=== PATIENT | male | born 1980 | race Caucasian/White ===

== ENCOUNTER 2021-11-30 12:52 | Emergency (ER) | payer OTHER ==
[~2021-11-30 12:52] MED LIST: IBUPROFEN600 MG PO; MOBIC15 MG PO; NAPROXEN250 MG PO
[2021-12-04 06:12] LABS: CHLAMYDIA TRACHOMATIS, NAA Negative (Negative); NEISSERIA GONORRHOEAE, NAA Negative (Negative)
== END 2021-11-30 16:25 | disposition home or self-care (01) ==
LOC: ER1 12:52
PROVIDERS: Physician Assistant
DX: N50.3 Cyst of epididymis (principal); F17.200 Nicotine dependence, unspecified, uncomplicated
CPT/HCPCS: 76870; 81001; 99284